=== PATIENT | male | born 1960 | race Caucasian/White ===

== ENCOUNTER 2017-02-05 21:24 | Emergency (ER) | payer BC, OTHER ==
[~2017-02-05] VITALS: Ht 172.7 cm; Wt 79.4 kg
[2017-02-05 21:55] LABS: URINE BILIRUBIN NEGATIVE (Negative); URINE BLOOD 3+ (Negative); URINE COLOR LIGHT PINK; URINE GLUCOSE-RANDOM* NEGATIVE (Negative); URINE KETONES NEGATIVE (Negative); URINE LEUKOCYTES-REFLEX NEGATIVE (Negative); URINE PROTEIN (DIPSTICK) NEGATIVE (Negative); URINE UROBILINOGEN 0.2 E.U./dl (0.2-1.0)
[2017-02-05 22:00] LABS: ABSOLUTE NEUTROPHILS 4.6 thou/uL (1.4-8.2); BASOPHILS 1.3 % (0.0-2.0); EOSINOPHILS 4.4 % (0.0-3.0); HEMATOCRIT 42.6 % (42.0-52.0); LYMPHOCYTES 27.3 % (24.0-44.0); MCH 28.2 pg (26.0-34.0); MCV 85.7 fL (80.0-100.0); MONOCYTES 9.3 % (1.0-8.0); PLATELET COUNT 237 thou/uL (150-400); POLYS 57.7 % (36.0-66.0); RBC 4.97 mil/uL (4.50-6.00); RDW 12.7 % (10.5-14.5)
[2017-02-05 22:01] LABS: MANUAL DIFF NO
[2017-02-05 22:02] LABS: URINE RBC >20 Many /HPF (0-2)
[2017-02-05 22:03] LABS: AMORPHOUS PHOSPHATES Many /LPF (None Seen); CASTS None Seen /LPF (None Seen); SQUAMOUS None Seen /LPF (0-3); URINE WBC-REFLEX 0-5 Rare /HPF (0-5)
[2017-02-05 22:08] LABS: CALCIUM 9.1 mg/dL (8.5-10.1); CREATININE 1.1 mg/dL (0.7-1.3); POTASSIUM 3.7 mmol/L (3.5-5.1)
[2017-02-05 22:13] LABS: ALBUMIN 3.8 g/dL (3.4-5.0); TOTAL BILIRUBIN 0.4 mg/dL (<0.1-1.0); TOTAL PROTEIN 6.7 g/dL (6.4-8.2)
[2017-02-05] MEDS ORDERED: ONDANSETRON HCL4 M2 PO (23:38)
[2017-02-05] MEDS ORDERED: FLOMAX0.4 MG PO (23:38)
[2017-02-05] MEDS ORDERED: PERCOCET 5-3251 EACH PO (23:39)
[2017-02-05] MEDS ORDERED: SENNA8.6 MG PO (23:40)
[2017-02-06 00:32] VITALS: BP 136/80
== END 2017-02-06 00:33 | disposition home or self-care (01) ==
LOC: ER 21:24 → EDBD 21:24 → ER 02-06 00:33
PROVIDERS: Emergency Medicine
DX: N20.0 Calculus of kidney (principal); Z87.442 Personal history of urinary calculi